=== PATIENT | female | born 1950 | race Caucasian/White ===

== ENCOUNTER → 2020-05-26 | Outpatient (CLI) | LOC: M LABSMTC 15:23 | PROVIDERS: ATTEND Pediatrics | DX: Z20.828 Contact with and (suspected) exposure to other viral communicable diseases (principal) ==

== ENCOUNTER → 2024-04-20 | Outpatient (CLI) | payer BC | LOC: M WHC 07:16 | PROVIDERS: ATTEND Internal Medicine Hematology & Oncology | DX: Z12.31 Encounter for screening mammogram for malignant neoplasm of breast (principal); Z90.12 Acquired absence of left breast and nipple; R92.321 Mammographic fibroglandular density, right breast; Z95.828 Presence of other vascular implants and grafts | CPT/HCPCS: 77067; G0279 ==

== ENCOUNTER → 2024-04-30 | Outpatient (CLI) | payer BC | LOC: M PLARAD 09:30 | PROVIDERS: ATTEND Internal Medicine Hematology & Oncology | DX: C50.012 Malignant neoplasm of nipple and areola, left female breast (principal) | CPT/HCPCS: 78815; A9552 ==